=== PATIENT | male | born 1965 | race Caucasian/White ===

== ENCOUNTER 2018-01-06 14:10 | Emergency (ER) | payer MEDICAID ==
[~2018-01-06] VITALS: Ht 190.5 cm; Wt 96.2 kg
[~2018-01-06 14:10] MED LIST: GLUC15006 PO; HYDR-3237 PO; LISI-167 PO; MULT-464 PO; NAPR500T8 PO; RANI150T8 PO
[2018-01-06 14:11] VITALS: BP 145/96
== END 2018-01-06 16:03 | disposition home or self-care (01) ==
LOC: ED 16:00
DX: S39.012A Strain of muscle, fascia and tendon of lower back, initial encounter (principal); K21.9 Gastro-esophageal reflux disease without esophagitis; X58.XXXA Exposure to other specified factors, initial encounter; Y93.89 Activity, other specified; Y92.89 Other specified places as the place of occurrence of the external cause; Y99.8 Other external cause status
CPT/HCPCS: 72110; 99284